=== PATIENT | female | born 1995 | race Caucasian/White ===

== ENCOUNTER 2021-12-02 09:59 | Emergency (ER) | payer OTHER ==
[~2021-12-02] VITALS: Ht 165.1 cm; Wt 63.5 kg
--- NOTE | 2021-12-02 10:13 | NUR ---
SAFETY CHECK/WANDED BY HOSPITAL COTTON MACHINE OPERATOR.
--- NOTE | 2021-12-02 10:20 | NUR ---
KALPANA (MOTHER) [phone]. SPOKE WITH MOTHER STATED "THE FRIEND CALLED ME, WHO SHE TEXTED, STATING THAT SHE TOOK LATUDA 20MG, TOTAL OF [address] MARCOS MADE AWARE.
[2021-12-02] MEDS ORDERED: LAMO200T2 PO (10:22)
[2021-12-02] MEDS ORDERED: LURA40TA PO (10:22)
[2021-12-02] MEDS ORDERED: OLANZAPINE 10 MG VIAL IM ONE ×2 (10:30→10:33)
[2021-12-02] MEDS ORDERED: diphenhydrAMINE HCL 50 MG/ML VIAL IM ONE ×2 (10:30→16:30)
[2021-12-02] MEDS ORDERED: diphenhydrAMINE HCL 50 MG/ML VIAL ONE ×2 (10:32→16:49)
--- NOTE | 2021-12-02 10:38 | NUR ---
CALLED POISON CONTROL AND NOTIFIED OF STATUS AND DOSAGE OF MEDICATION TAKEN BERTRAM (PHARMACIST) RECOMENDED - TO WATCH FOR HYPOTENSION, DROWSY, TACHYCARDIA, AND QT PROLONGATION - AFTER 6 HOURS REPEAT EKG AND IF THE PT IS ASYMPTOMATIC, THE PT WILL BE CLEARED - IF SYMPTOMATIC THEN THE PT SHOULD BE ADMITTED FOR FURTHER OBSERVATION
[2021-12-02 10:57] LABS: BASOPHILS % (AUTO) 0.4 % (0.0-2.0); EOSINOPHILS % (AUTO) 0.7 % (0.0-6.0); HEMATOCRIT 38 % (33-45); HEMOGLOBIN 13.2 g/dL (11.5-14.8); LYMPHOCYTES # (AUTO) 1.5 K/uL (0.8-4.8); LYMPHOCYTES % (AUTO) 23.5 % (20.0-44.0); MEAN CORPUSCULAR HGB CONC 35 g/dl (31.0-36.0); MEAN CORPUSCULAR VOLUME 90 fL (82-100); MONOCYTES # (AUTO) 0.4 K/uL (0.1-1.30); MONOCYTES % (AUTO) 6.7 % (2.0-12.0); NEUTROPHILS # (AUTO) 4.5 K/uL (1.8-8.9); NEUTROPHILS % (AUTO) 68.7 % (43.0-81.0); PLATELET COUNT (AUTO) 209 K/uL (150-450); RED BLOOD CELL COUNT(AUTO) 4.21 MIL/uL (4.0-5.2); WHITE BLOOD COUNT (AUTO) 6.6 K/uL (4.3-11.0)
[2021-12-02 11:09] LABS: CARBON DIOXIDE 21 mmol/L (21-32); CHLORIDE 102 mmol/L (98-107); GLUCOSE 145 mg/dL (74-106); POTASSIUM 3.4 mmol/L (3.5-5.1); SODIUM SERUM 136 mmol/L (136-145); UREA NITROGEN, BLOOD 18 mg/dL (7-18)
[2021-12-02 11:16] LABS: ALANINE AMINOTRANSFERASE 23 U/L (12-78); ALBUMIN 4.3 g/dL (3.4-5.0); ALCOHOL, BLOOD < 3 mg/dL (0-0); ALKALINE PHOSPHATASE 67 U/L (46-116); ASPARTATE AMINOTRANSFERASE 33 U/L (15-37); BILIRUBIN,DIRECT 0.2 mg/dL (0.0-0.2); BILIRUBIN,TOTAL 0.6 mg/dL (0.2-1.0); TOTAL PROTEIN, SERUM 7.3 g/dL (6.4-8.2)
--- NOTE | 2021-12-02 11:17 | NUR ---
URINE COLLECTED AND SENT TO LAB
[2021-12-02 11:20] LABS: ACETAMINOPHEN 0 ug/ml (10-30)
[2021-12-02 11:44] LABS: BILIRUBIN,URINE NEGATIVE (NEGATIVE); COLOR,URINE YELLOW (YELLOW); LEUKOCYTE ESTERASE ,URINE SMALL (NEGATIVE); NITRITE, URINE NEGATIVE (NEGATIVE); PROTEIN,URINE NEGATIVE (NEGATIVE); UGLUCOSE NEGATIVE (NEGATIVE); UROBILINOGEN,URINE 0.2 EU/dL (0.2)
--- NOTE | 2021-12-02 11:55 | NUR ---
ROUTINE ASSESSMENTS DONE, PATIENT COOPERATIVE AND CALM, NO NEED FOR RESTRAINTS, DR MARCOS AWARE, RESTRAINTS DISCONTINUED.
--- NOTE | 2021-12-02 12:04 | NUR ---
Mother called asking for transfer to a psych facility and not released.
--- NOTE | 2021-12-02 12:09 | NUR ---
MOTHER ASKED FOR PSYCH [employer] ROLL COVERER TO CALL HER FOR HX OF PT.
[2021-12-02 12:15] LABS: BACTERIA,URINE Few /HPF (None Seen); RBC,URINE 0-2 /HPF (0-2); SQUAMOUS EPITHELIAL CELL,UR Moderate /HPF (None Seen)
--- NOTE | 2021-12-02 15:45 | NUR ---
PATIENT SCREAMING AND UNCOOPERATIVE WITH STAFF, MD AWARE
--- NOTE | 2021-12-02 15:50 | NUR ---
MAURO called ED to verify if pt. is medically cleared for evaulation by production metal sprayer. However, medical clearance is still pending. Maggy is agreeable to call production metal sprayer to evaulate pt. for possible 5150 hold & placement at a psychiatric treatment facility when medically cleared.
[2021-12-02] MEDS ORDERED: LORAZEPAM INJ 2 MG/ML VIAL IM ONE (16:30)
[2021-12-02] MEDS ORDERED: LORAZEPAM INJ 2 MG/ML VIAL ONE (16:49)
--- NOTE | 2021-12-02 17:17 | NUR ---
COVID ANTIGEN SWAB DONE AND SENT TO LAB
--- NOTE | 2021-12-02 19:24 | NUR ---
REPORT GIVEN TO NURSE TAMEZ FOR ALBERTA
--- NOTE | 2021-12-02 20:09 | NUR ---
PT RESTING COMFORTABLY IN ROOM, PROVIDED HER WITH FOOD
--- NOTE | 2021-12-02 20:50 | NUR ---
PINKY AIR COMPRESSOR MECHANIC AT BEDSIDE
--- NOTE | 2021-12-02 23:17 | NUR ---
[place] [phone]
--- NOTE | 2021-12-02 23:23 | NUR ---
ACCEPTING PSYCH DR CAT AND [facility] ROOM [address]
--- NOTE | 2021-12-02 23:29 | NUR ---
[facility] ETA 5 MINUTES
--- NOTE | 2021-12-02 23:38 | NUR ---
[facility] AT BED SIDE TO PANTOGRAPH ENGRAVER THE PT
[2021-12-03 00:21] VITALS: BP 105/84
== END 2021-12-03 00:22 ==
LOC: ER 10:03
DX: T43.592A Poisoning by other antipsychotics and neuroleptics, intentional self-harm, initial encounter (principal); R41.0 Disorientation, unspecified; Y92.039 Unspecified place in apartment as the place of occurrence of the external cause; F31.9 Bipolar disorder, unspecified; F60.3 Borderline personality disorder; Z78.1 Physical restraint status; Z20.822 Contact with and (suspected) exposure to COVID-19
CPT/HCPCS: 36415; 80048; 80076; 80143; 80307; 80320; 81001; 84703; 85025; 87086; 87426; 93005 ×2; 96372 ×2; 99291; C9803; J1200 ×2; J2060; J3490; G0480